=== PATIENT | female | born 1975 | race Caucasian/White ===

== ENCOUNTER → 2018-08-29 14:31 | Outpatient (CLI) | payer OTHER, SELFPAY ==
[2018-08-03 08:52] VITALS: BMI 34.4
== END ==
PROVIDERS: Family Provider Physician Assistant; PCP Physician Assistant; Referring Provider Surgery; Visit Provider Surgery
DX: Z01.810 Encounter for preprocedural cardiovascular examination (principal)

== ENCOUNTER 2018-09-02 09:44 | Observation (INO) | payer OTHER, SELFPAY ==
[2018-08-03 08:52] VITALS: BMI 34.4
--- NOTE | 2018-08-29 14:34 | EKG12_ITS ---
Test Reason : PRE-OP Blood Pressure : / mmHG Vent. Rate : 057 BPM Atrial Rate : 057 BPM P-R Int : 166 ms QRS Dur : 088 ms QT Int : 436 ms P-R-T Axes : 055 046 043 degrees QTc Int : 424 ms Sinus bradycardia Otherwise normal ECG When compared with ECG of 15-AUG-2009 11:42, No significant change was found Confirmed by ZEINAB RYAN, DEMOND ([id number]), fan mail editor LILLI VANG ([id number]) on 09/02/2018 9:27:52 AM Referred By: Costa Erickson Confirmed By:DEMOND ARRIOLA MD
[2018-08-29 15:09] LABS: Hematocrit 39.1 % (37-47); Hemoglobin 12.7 g/dl (12.0-15.0); Mean Corp Hgb Conc 32.5 g/gl (32-36); Mean Corpuscular Hgb 29.2 pg (27.0-32.0); Mean Corpuscular Volume 89.9 fL (81-99); Platelet Count 268 K/mm3 (150-450); RBC Distribution Width CV 13.1 % (11.6-14.6); RBC Distribution Width SD 42.8 fl (35.1-43.9); Red Blood Count 4.35 M/mm3 (4.2-5.4); White Blood Count 5.3 K/mm3 (4.4-11.0)
[2018-08-29 15:10] LABS: Scan Indicated on CBC? Y/N NO
[2018-08-29 15:15] LABS: Partial Thromboplast Time 26.4 Seconds (24.1-36.2); Prothrombin Time (Protime)PT. 12.6 SECONDS (11.7-14.9)
[2018-08-29 15:27] LABS: Hemoglobin A1c 6.2 % (4.2-6.3)
[2018-08-29 15:40] LABS: Anion Gap 7 (5-15); BUN 16 mg/dL (7-18); BUN/Creat Ratio 23.9 RATIO (10-20); Calcium,Total 8.7 mg/dL (8.5-10.1); Chloride 107 mmol/L (98-107); Creatinine, Serum 0.67 mg/dL (0.55-1.02); EST Glomerular Filtration Rate 103 mL/min (>60); Est Glom Filt Rate - Afr Amer 125 mL/min (>60); Glucose 89 mg/dL (74-106); Potassium 4.1 mmol/L (3.5-5.1); Sodium Level 141 mmol/L (136-145)
[2018-09-02] VITALS (11 sets, daily range): BP systolic 109–133; BP diastolic 59–76; PULSE 65–83; RESP 16–18; TEMP 36.4–36.8; O2SAT 93–98; BMI 34.9
--- NOTE | 2018-09-02 07:04 | PCM.DC.GS ---
Discharge Diet: Light diet - advance as tolerated - if you have questions about your diet instructions, please talk to you doctor. Discharge Activity: May Not Drive - for 3-5 days or while taking narcotic pain medicine. May shower in (days): 1 Lifting Restrictions: 10 pounds Call your doctor if your incision/area has: Continuous Slow Oozing, Sudden Increased Bleeding, Increased Pain/ Swelling, Increased Redness, Foul Smelling Discharge Call your doctor if you observe: Fever of 101 or Higher Suture Line Care: Avoid Pulling/Pushing, Avoid Pinching/Bending Additional Dressing/Incision Instructions:: Change or remove dressing in 4 days. Leave steri-strips in place for 1 week. Allergies/Adverse Reactions: Allergies Sulfa (Sulfonamide Antibiotics) Adverse Reaction (Severe, Verified 08/26/18 09:55) Anaphylaxis Medications to take at Discharge coenzyme Q10 75 mg capsule 200 mg PO DAILY 08/03/18 kava (piper methysticum) 500 mg capsule 500 mg PO QHS 08/03/18 lactobacillus combination no.8 3 billion cell capsule 3,000 mmu cells PO DAILY 08/03/18 lisinopril 2.5 mg tablet 2.5 mg PO DAILY 08/03/18 lovastatin 20 mg tablet 20 mg PO DAILY 08/03/18 multivitamin capsule 1 cap PO DAILY 08/03/18 omega-3 fatty acids 1,000 mg capsule 1,000 mg PO DAILY 08/03/18 ALPRAZolam [Xanax] 0.25 mg PO BID PRN PRN 08/26/18 Cartilage/Collagen/Bor/Hyalur [Joint Health Tablet] 2 each PO DAILY 08/26/18 Hydrocodone Bitart/Apap 5-325 [[place] 5MG-325MG] 1 tablet PO Q4H PRN PRN 4 Days #15 tablet 09/02/18 The following prescriptions were given: Hydrocodone Bitart/Apap 5-325 [[place] 5MG-325MG] 1 tablet PO Q4H PRN PRN 4 Days #15 tablet PRN Reason: Pain Orders to be completed after discharge: 12 Lead EKG [[facility]] Time Frame: 08/26/18, Facility: [facility], Location: Cardiovascular Services Partial Thromboplast Time Time Frame: 08/26/18, Location: Laboratory Hemoglobin A1c Time Frame: 08/26/18, Location: Laboratory Basic Metabolic Profile (BMP) Time Frame: 08/26/18, Location: Laboratory CBC-Complete Blood Cnt No Diff Time Frame: 08/26/18, Location: Laboratory Prothrombin Time w/INR Time Frame: 08/26/18, Location: Laboratory Primary Care Physician: Joann Herbert PA [Primary Care Provider] - Test Results: Test results from this visit will be discussed in further detail at your follow-up appointment, if applicable. Please Follow Up With: Costa Erickson MD - [phone] When: Call to make an appointment to be seen in about 10 days.
--- NOTE | 2018-09-02 07:15 | HERN_PTH ---
PATIENT: BLESSING FITCH LOC: MS3 U#:[id number] AGE/SX: 42/F ROOM: MS311 RE09/02/[address]: Dr. Costa Erickson MD : [id number] BED: 1 DIS: 09/04/2018 SPEC #: [id number] RECD: 09/02/18 10:41 STATUS: KADEN ABY #: [id number] SVETLANA: 09/02/18 07:[address]: Costa Erickson DEPT: SURGICAL PATHOLOGY RECD BY: Hong Byrd ENTERED: 09/02/18 13:29 SP TYPE: Hernia OTHR DR: ZION Oden Tissues: HERNIA Procedures: Surgery Specimen Level IV HEADER OPERATION: Laparoscopic ventral/incisional hernia repair, mesh, lysis of adhesions PRE-OP DIAGNOSIS: Recurrent incisional hernia with incarceration TISSUE SUBMITTED: Ventral incisional hernia sac MICROSCOPIC DIAGNOSIS Ventral incisional hernia sac: Fragments of mesothelial-lined fibroadipose and fibroconnective, consistent with hernia sac with mild chronic inflammation, congestion and reactive changes. SAUD:virgilio 09/05/18 MICROSCOPIC DESCRIPTION Slides are reviewed. GROSS DESCRIPTION Received in fixative is one container labeled with the patient's name and designated ventral incisional hernia sac. The specimen consists of multiple irregular fragments of barrientos-pink soft tissue that in aggregate measure 8 x 5 x 1.5 cm. No mass lesion is identified. Carriage Dogger sections are submitted in one cassette. / SAUD:virgilio 09/02/18 TC:5 CPT: 66563
[2018-09-02] MEDS: Cefazolin 2 GM in 0.9% Normal Saline 100 ML IV (07:16)
[2018-09-02] MEDS: BUPIVACAINE LIPOSOME/PF 20 ML VIAL OPERA.SITE (09:30)
[2018-09-02] MEDS: Bupivacaine 0.25% 30 ML Vial (09:30)
--- NOTE | 2018-09-02 09:36 | PCM.OPRPT ---
Problem List (1) Recurrent incisional hernia with incarceration Status: Acute Report of Operation Date of Procedure: 09/02/18 Pre-Operative Diagnosis: Recurrent incarcerated ventral incisional hernia Post-Operative Diagnosis: Recurrent incarcerated ventral incisional hernia with extensive intra-abdominal adhesions Surgery/Procedure Performed:: Extensive lysis of adhesions 1 hour, hybrid open and laparoscopic recurrent ventral incisional herniorrhaphy, ventral light ST mesh 17.8 x 22.9 cm reference #[id number] lot number P[employer] ESTIMATOR [id number] expiry date 11/16/2019. Laparoscopically guided bilateral KESHA block Description of Surgical Findings:: Timeout and informed consent was obtained. 42-year-old female taken out from placement table underwent general endotracheal intubation anesthesia. The abdomen was sterilely prepped draped. Ancef 2 g given intravenously preoperatively. Ioban drape was used to help hold the drapes in place. A small ellipse of skin in the infraumbilical area from previous incision incisions was sharply excised. This was consistent with skin scar it was inspected and discarded. Sharp dissection carried down through the subcutaneous tissue and a large ventral incisional hernia sac was encountered. This was circumferentially dissected free. Hemostasis was obtained electrocautery. The sac was opened to allow for better removal. There were extensive adhesions of omentum to the sac that had to be sharply light dissected free. Having now completely re-release the sac to the defect area superior to inferior measured approximately 8 cm and laterally approximately 8 cm as well. I approximated the fascia transversely with multiple simple sutures of 0 Nurolon. Once I had it partially approximated I placed a Heller catheter and insufflated the abdomen CO2 to a pressure of 12 mmHg pressure. A 10-minute laparoscope inserted the abdomen inspected with no evidence of any trocar injuries no evidence of any injury from the previous extensive lysis of adhesions unfortunately were additional adhesions of greater omentum to the infraumbilical abdominal wall. 2 5-minute ports were placed in the right mid abdomen to 5 and reports were placed in the left mid abdomen. Using harmonic scalpel the extensive adhesions were lysed from the anterior abdominal wall. Total time for complete the adhesion lysis was 1 hour. Having achieved that now I had the entire anterior abdominal wall free. The ureters had been partially adherent and I partially dissected adhesions to get the uterus partially freed from the anterior abdominal wall to allow for further inferior placement of the mesh. I selected a 17.8 x 22.[address] piece of ventral light ST mesh. 4 corner sutures of 2-0 Prolene were placed. The mesh was furled placed within the abdomen and then it was unfurled. It was carefully parachuted up to the anterior abdominal wall using stab incisions and a GraNee needle. Excellent positioning was achieved so that the mesh was just down at the site of the uterus at the anterior abdominal wall and then superior up to the falciform ligament. The parachute sutures were secured. Then secure strap was utilized at 2 cm intervals completely around the periphery of the mesh. I also used the secure strap to further complete the mesh internally to assure that space had been ablated and that there was good fixation of the mesh in the central portion of the mesh as well. Excellent approximation and coverage of the defect area had been achieved. The greater omentum was placed overlying the small bowel. Now a tap block was performed. Using 20 cc of Exparel mixed with 30 cc of 0.25% Marcaine and 50 cc of saline a bilateral tap block was performed under laparoscopic visualization. I started superiorly at the costal margin and injected splitting the intercostal fibers. Aspiration was performed and this was progressed at approximately [address] down bilaterally. I also injected local at the skin sites themselves and at the fascial repair centrally. The wounds were now closed with interrupted 4 Monocryl subdermal stitches. Steri-Strips Telfa and OpSite dressings applied. Sponge and instrument and needle counts were reported the surgeon be correct. Blood loss was minimal. She tolerated the procedure well. She was taken to the recovery area in satisfactory condition without apparent complication. Specimen includes hernia sac. Drains none. Blood loss minimal. Costa Erickson M.D., F.A.C.S. Type of Anesthesia:: General Anesthesiologist: Mamie Mckoy
--- NOTE | 2018-09-02 09:42 | OP.PCM_ITS ---
Problem List (1) Recurrent incisional hernia with incarceration Status: Acute Report of Operation Date of Procedure: 09/02/18 Pre-Operative Diagnosis: Recurrent incarcerated ventral incisional hernia Post-Operative Diagnosis: Recurrent incarcerated ventral incisional hernia with extensive intra-abdominal adhesions Surgery/Procedure Performed:: Extensive lysis of adhesions 1 hour, hybrid open and laparoscopic recurrent ventral incisional herniorrhaphy, ventral light ST mesh 17.8 x 22.9 cm reference #[id number] lot number [employer] SUPPORT ASSISTANT [id number] expiry date 11/16/2019. Laparoscopically guided bilateral KESHA block Description of Surgical Findings:: Timeout and informed consent was obtained. 42-year-old female taken out from placement table underwent general endotracheal intubation anesthesia. The abdomen was sterilely prepped draped. Ancef 2 g given intravenously preoperatively. Ioban drape was used to help hold the drapes in place. A small ellipse of skin in the infraumbilical area from previous incision incisions was sharply excised. This was consistent with skin scar it was inspected and discarded. Sharp dissection carried down through the subcutaneous tissue and a large ventral incisional hernia sac was encountered. This was circumferentially dissected free. Hemostasis was obtained electrocautery. The sac was opened to allow for better removal. There were extensive adhesions of omentum to the sac that had to be sharply light dissected free. Having now completely re-release the sac to the defect area superior to inferior measured approximately 8 cm and laterally approximately 8 cm as well. I approximated the fascia transversely with multiple simple sutures of 0 Nurolon. Once I had it partially approximated I placed a Heller catheter and insufflated the abdomen CO2 to a pressure of 12 mmHg pressure. A 10-minute laparoscope inserted the abdomen inspected with no evidence of any trocar injuries no evidence of any injury from the previous extensive lysis of adhesions unfortunately were additional adhesions of greater omentum to the infraumbilical abdominal wall. 2 5-minute ports were placed in the right mid abdomen to 5 and reports were placed in the left mid abdomen. Using harmonic scalpel the extensive adhesions were lysed from the anterior abdominal wall. Total time for complete the adhesion lysis was 1 hour. Having achieved that now I had the entire anterior abdominal wall free. The ureters had been partially adherent and I partially dissected adhesions to get the uterus partially freed from the anterior abdominal wall to allow for further i nferior placement of the mesh. I selected a 17.8 x 22.9 piece of ventral light ST mesh. 4 corner sutures of 2- 0 Prolene were placed. The mesh was furled placed within the abdomen and then it was unfurled. It was carefully parachuted up to the anterior abdominal wall using stab incisions and a GraNee needle. Excellent positioning was achieved so that the mesh was just down at the site of the uterus at the anterior abdominal wall and then superior up to the falciform ligament. The parachute sutures were secured. Then secure strap was utilized at 2 cm intervals completely around the periphery of the mesh. I also used the secure strap to further complete the mesh internally to assure that space had been ablated and that there was good fixation of the mesh in the central portion of the mesh as well. Excellent approximation and coverage of the defect area had been achieved. The greater omentum was placed overlying the small bowel. Now a tap block was performed. Using 20 cc of Exparel mixed with 30 cc of 0.25% Marcaine and 50 cc of saline a bilateral tap block was performed under laparoscopic visualization. I started superiorly at the costal margin and injected splitting the intercostal fibers. Aspiration was performed and this was progressed at approximately [address] down bilaterally. I also injected local at the skin sites themselves and at the fascial repair centrally. The wounds were now closed with interrupted 4 Monocryl subdermal stitches. Steri-Strips Telfa and OpSite dressings applied. Sponge and instrument and needle counts were reported the surgeon be correct. Blood loss was minimal. She tolerated the procedure well. She was taken to the recovery area in satisfactory condition without apparent complication. Specimen includes hernia sac. Drains none. Blood loss minimal. Costa Erickson M.D., F.A.C.S. Type of Anesthesia:: General Anesthesiologist: Mamie Mckoy
[2018-09-02 10:16] LABS: Bedside Glucose 152 mg/dL (70-110)
[2018-09-02] MEDS: Lactated Ringers 1,000 ML 70 ML IV (10:43)
[2018-09-02] MEDS: Ondansetron 4 MG/2 ML Vial IV ×2 (11:48→19:54)
[2018-09-02] MEDS: Morphine 2 MG/ML Syringe IV ×2 (12:06→18:12)
[2018-09-02] MEDS: Ketorolac 15 MG/ML Vial IV ×2 (13:32→19:54)
--- NOTE | 2018-09-02 17:33 | PCM.PN.BLA ---
Progress Note Nausea has resolved No flatus Pain controlled Needs to ambulate in halls Will start clears
[2018-09-03] MEDS: Ketorolac 15 MG/ML Vial IV ×2 (01:59→18:19)
[2018-09-03 02:01] VITALS: BP 128/61; PULSE 74; RESP 16; TEMP 36.9; O2SAT 99
[2018-09-03] MEDS: Morphine 2 MG/ML Syringe IV (02:25)
[2018-09-03] MEDS: Lactated Ringers 1,000 ML 40 ML IV (03:14)
--- NOTE | 2018-09-03 06:17 | PCM.PN.SRG ---
Subjective: POD1 Pt had some discomfort at 2 a.m. No nausea. Tolerating clears. No flatus. Still requiring IV pain meds - Physical Exam Lungs: Clear to auscultation Abdomen: Soft, Bowel Sounds Not Present, Tender Vital Signs Temp Pulse Resp BP Pulse Ox 98.5 F 74 16 128/61 H 99 09/03/18 02:01 09/03/18 02:01 09/03/18 02:01 09/03/18 02:01 09/03/18 02:01 Oxygen Delivery Method Room Air Weight: 243 lb 9.773 oz Body Mass Index (BMI) 34.9 Finger Stick Blood Glucose 152 Intake and Output for Last 24 Hours 09/01/18 09/02/18 09/03/18 23:59 23:59 23:59 Intake Total 1522 / 1522 590 / 590 Output Total 800 / 800 350 / 350 Balance 722 / 722 240 / 240 POC Glucose 09/02/18 10:11 POC Glucose 152 H Medical Necessity - Tobacco Use Smoking Status: Never smoker Tobacco Use: Non-smoker Assessment/Plan All Active Problems (Last Updated 08/03/18 @ 08:46 by Annel Barahona) Type 2 diabetes mellitus (Acute) Obesity (BMI 30.0-34.9) (Acute) Recurrent incisional hernia with incarceration (Acute) Need to continue to mobilize No ready for DC at this moment Will re assess later today
[2018-09-03] MEDS: Enoxaparin 40 MG/0.4 ML Syringe SC (06:23)
[2018-09-03] MEDS: oxyCODONE 5 MG Tablet PO ×4 (06:37→21:03)
[2018-09-03] MEDS: Acetaminophen 325 MG Tablet 650 MG PO ×2 (07:40→13:58)
[2018-09-03 07:47] VITALS: O2SAT 96
[2018-09-03 07:52] VITALS: BP 108/57; PULSE 88; RESP 16; TEMP 36.7; O2SAT 93
[2018-09-03 10:37] VITALS: BP 137/62; PULSE 82; RESP 16; TEMP 36.8; O2SAT 97
[2018-09-03] MEDS: Lisinopril 2.5 MG Tablet PO (10:40)
[2018-09-03 13:56] VITALS: BP 136/62; PULSE 87; RESP 16; TEMP 37.3; O2SAT 96
[2018-09-03] MEDS: Lactulose 20 GM/30 ML UDC PO (16:10)
[2018-09-03 21:06] VITALS: BP 135/79; PULSE 93; RESP 18; TEMP 36.4; O2SAT 98
[2018-09-03] MEDS: Atorvastatin Calcium 10 MG Tablet 5 MG PO (21:12)
[2018-09-04] MEDS: Lactated Ringers 1,000 ML 40 ML IV (00:37)
[2018-09-04] MEDS: Ketorolac 15 MG/ML Vial IV ×2 (00:37→06:46)
[2018-09-04 02:57] VITALS: BP 114/70; PULSE 84; RESP 16; TEMP 36.7; O2SAT 99
[2018-09-04] MEDS: Acetaminophen 325 MG Tablet 650 MG PO ×2 (03:05→11:44)
[2018-09-04] MEDS: Enoxaparin 40 MG/0.4 ML Syringe SC (06:41)
[2018-09-04 07:52] VITALS: O2SAT 97
[2018-09-04 07:55] VITALS: PULSE 75; RESP 15; O2SAT 93
[2018-09-04 08:00] VITALS: BP 119/61; PULSE 73; RESP 15; TEMP 36.6; O2SAT 93
--- NOTE | 2018-09-04 08:27 | PN.SURG_ITS ---
Subjective: Only a small amount of flatus last night, complains of bloating and cramping tolerating full's and taking the Toradol instead of the Oxy - Physical Exam General: Alert, Oriented x3, Cooperative, No apparent distress HEENT: Atraumatic Lungs: Normal air movement Abdomen: Soft, Distended - Mild to moderate, Tender - Appropriate near incisions clean dry and intact/dressed Vital Signs Temp Pulse Resp BP Pulse Ox 97.9 F 73 15 119/61 93 09/04/18 08:00 09/04/18 08:00 09/04/18 08:00 09/04/18 08:00 09/04/18 08:00 Oxygen Delivery Method Room Air Weight: 243 lb 9.773 oz Body Mass Index (BMI) 34.9 Finger Stick Blood Glucose 152 Intake and Output for Last 24 Hours 09/02/18 09/03/18 09/04/18 23:59 23:59 23:59 Intake Total 1522 / 1522 3088 / 3088 685 / 685 Output Total 800 / 800 2750 / 2750 1999 Balance 722 / 722 338 / 338 -1315 / -1315 Medical Necessity - Tobacco Use Smoking Status: Never smoker Tobacco Use: Non-smoker Assessment/Plan All Active Problems (Last Updated 08/03/18 @ 08:46 by Annel Barahona) Type 2 diabetes mellitus (Acute) Obesity (BMI 30.0-34.9) (Acute) Recurrent incisional hernia with incarceration (Acute) Continue full's will advance and patient has increased bowel function Continue ambulating okay to chew gum Bela Herman M.D. Pager: [phone] [facility] [address] [place] [address], [facility], [address] [place] [address] Office: [phone]
[2018-09-04] MEDS: Bisacodyl 10 MG Suppository RECTAL (10:09)
[2018-09-04] MEDS: Lisinopril 2.5 MG Tablet PO (10:10)
[2018-09-04 11:47] VITALS: PULSE 80
[2018-09-04 13:36] VITALS: BP 139/73; PULSE 81; RESP 14; TEMP 37.2; O2SAT 97
== END 2018-09-04 15:22 | disposition home or self-care (01) ==
LOC: MS3 11:24
PROVIDERS: Admitting Provider Surgery; Family Provider Physician Assistant; PCP Physician Assistant; Referring Provider Surgery; Visit Provider Surgery
PROC: 0WQF4ZZ Repair Abdominal Wall, Percutaneous Endoscopic Approach (ICD-10-PCS; CPT 49560; principal; 2018-09-02 06:55)
DX: K43.0 Incisional hernia with obstruction, without gangrene (principal); K66.0 Peritoneal adhesions (postprocedural) (postinfection); E11.9 Type 2 diabetes mellitus without complications; E78.5 Hyperlipidemia, unspecified; I10 Essential (primary) hypertension; E66.9 Obesity, unspecified; R00.1 Bradycardia, unspecified; Z68.35 Body mass index [BMI] 35.0-35.9, adult; Z71.3 Dietary counseling and surveillance; Z79.899 Other long term (current) drug therapy
CPT/HCPCS: 00832; 49560; 49568; 36415; 80048; 82962; 83036; 85027; 85610; 85730; 88302; 88305; 93005; 94762; 96372; 96374; 96375; 96376; 99218; J7120; A4216; C1781; G0378; G0379; J2405; J3490

== ENCOUNTER → 2019-08-28 14:58 | Outpatient (CLI) | payer OTHER, SELFPAY ==
[2018-11-04 07:51] VITALS: BMI 34.9
--- NOTE | 2019-08-28 15:37 | RAD_ITS ---
STUDY: X-RAY CHEST REASON FOR EXAM: Female, 43 years old. LOW TENSION GLAUCOMA/ IRIDOCYCLITIS TECHNIQUE: PA and lateral views of the chest. COMPARISON: None. FINDINGS: The lungs are clear and expanded. There is no demonstrated pleural abnormality. Normal size heart. Normal mediastinum and veronika. Normal visualized pulmonary arteries. Normal visualized aortic arch and descending thoracic aorta. Normal visualized thoracic spine. Normal visualized ribs, clavicles, and shoulders. There is no demonstrated abnormality of the visualized soft tissue structures of the upper abdomen. RAD/Chest PA and Lateral IMPRESSION: Normal x-ray examination of the chest. Electronically Signed: Julissa Hart MD at 1:10 EDT , Service support ,
[2019-08-31 02:09] LABS: Rapid Plasmin Reagin (RPR) NONREACTIVE (NONREACTIVE)
[2019-09-04 20:00] LABS: Angiotensin Convert Enzyme 15 U/L (14-82); HLA B27 Negative (.)
== END ==
PROVIDERS: PCP Physician Assistant; Referring Provider Ophthalmology; Visit Provider Ophthalmology
DX: H20.011 Primary iridocyclitis, right eye (principal); H40.1230 Low-tension glaucoma, bilateral, stage unspecified
CPT/HCPCS: 36415; 71046; 81374; 82164; 86592

== ENCOUNTER → 2023-03-30 | Outpatient (CLI) | payer OTHER, SELFPAY ==
--- NOTE | 2023-03-30 07:30 | MRI_ITS ---
INDICATION: HEADACHE,FACIAL NUMBNESS EXAMINATION: MRI - MR Brain WO/W Contrast TECHNIQUE: Multiplanar and multisequence MR images of the brain were obtained without and with gadolinium. IV Contrast Dosage and Agent: None. COMPARISON: FINDINGS: BRAIN PARENCHYMA: No MRI evidence of hemorrhage. No evidence of acute infarct. No intracranial mass or mass effect. There is preservation of the walker/white matter interface. Normal sella turcica, pituitary gland, infundibular stalk, optic chiasm and hypothalamus. Posterior fossa structures are unremarkable. INTERNAL AUDITORY CANALS: The internal auditory canals are well visualized and patent. No mass identified. CSF SPACES: Appropriate for age. No hydrocephalus. Basal cisterns are patent. VASCULAR SYSTEM: Normal flow voids in the major intracranial circulation. CALVARIUM, SKULL BASE, PARANASAL SINUSES AND MASTOID AIR CELLS: Clear. No expansile changes. ORBITS: Both globes, extraocular muscles, optic nerves and retrobulbar fat appear unremarkable. MRI/Brain W/WO Contrast IMPRESSION: Negative MRI Brain and Interal Auditory Canals. Electronically Signed: Kvng Salguero MD at 10:25 EDT ,
[2023-03-30 08:03] LABS: CREATININE FINGERSTICK < 0.9 mg/dL (0.55-1.02); EGFR FINGERSTICK > 60.0000 mL/min (>60)
== END | disposition home or self-care (01) ==
LOC: MRI 07:24
PROVIDERS: PCP Physician Assistant; Referring Provider Ophthalmology; Visit Provider Ophthalmology
DX: R51.9 Headache, unspecified (principal); R20.2 Paresthesia of skin
CPT/HCPCS: 70553; A9575

== ENCOUNTER → 2024-03-10 | Outpatient (CLI) | payer BC, SELFPAY ==
[2024-03-17 21:07] LABS: Aldosterone, Serum 5.5 ng/dL (0.0-30.0); Renin, Plasma 0.745 ng/mL/hr (0.167-5.380)
== END | disposition home or self-care (01) ==
PROVIDERS: PCP Physician Assistant
DX: D44.12 Neoplasm of uncertain behavior of left adrenal gland (principal)
CPT/HCPCS: 36415; 82088; 84244